=== PATIENT | male | born 1970 | race Two or more races ===

== ENCOUNTER 2016-03-12 22:51 | Emergency (ER) | payer MEDICAID, OTHER ==
[~2016-03-12] VITALS: Ht 177.8 cm; Wt 93.0 kg
[2016-03-12 23:55] VITALS: BP 118/70
[2016-03-13] MEDS ORDERED: cefTRIAXone SOD 1,000 MG VL IM ONE (01:15)
[2016-03-13] MEDS ORDERED: methylPREDNISolone SOD SUCC 125 MG/2 ML VL IM ONE (01:15)
== END 2016-03-13 01:23 | disposition home or self-care (01) ==
LOC: ER 23:02
DX: J02.9 Acute pharyngitis, unspecified (principal); E11.9 Type 2 diabetes mellitus without complications; I10 Essential (primary) hypertension
CPT/HCPCS: 82962; 96372; 99284; J0696; J2930

== ENCOUNTER 2023-10-20 15:37 | Emergency (ER) | payer BC, MEDICAID ==
[~2023-10-20] VITALS: Ht 177.8 cm; Wt 102.8 kg
[2023-10-20 16:56] LABS: Urine Bacteria None Seen /hpf (None Seen)
[2023-10-20 17:18] LABS: Urine Blood 1+ /uL (Negative); Urine Clarity Clear (Clear); Urine Color Light-Yellow (Yellow); Urine Protein, UAD 2+ (Negative); Urine Specific Gravity 1.019 (1.001-1.035); Urine Urobilinogen Normal (Negative); Urine WBC <1 /hpf (0 - 3)
[2023-10-20 18:58] LABS: Basophils # (auto) 0.1 10 ^3/uL (0-0.2); Basophils % (auto) 0.9 % (0.0-2.0); Eosinophils # (auto) 0.2 10 ^3/uL (0-0.8); Eosinophils % (auto) 3.2 % (0.0-7.0); Lymphocytes % (auto) 29.9 % (10.0-50.0); Mean Corpuscular Hemoglobin 30.7 pg (28.0-32.0); Mean Corpuscular Hgb Conc. 36.2 g/dL (32.0-36.0); Mean Corpuscular Volume 84.8 fL (80.0-100.0); Monocytes # (auto) 0.5 10 ^3/uL (0-1.3); Monocytes % (auto) 7.7 % (0.0-12.0); Neutrophils # (auto) 3.9 10 ^3/uL (1.6-8.6); Neutrophils % (auto) 58.3 % (37.0-80.0); Nucleated Red Blood Cells % 0.2 %; Platelet Count (auto) 230 10^3/uL (140-450); Red Blood Cells 4.25 10^6/uL (4.5-5.90); White Blood Cell 6.7 10^3/uL (4.4-10.8)
[2023-10-20 19:19] LABS: Alanine Aminotransferase 47 U/L (7-40); Alkaline Phosphatase 82 U/L (46-116); Anion Gap 6 (5-15); BUN/Creatinine Ratio 16.5 (10.0-20.0); Bilirubin, Total 0.2 mg/dL (0.2-1.0); Blood Urea Nitrogen 30 mg/dL (9-23); Calcium 9.3 mg/dL (8.7-10.4); Carbon Dioxide 23 mmol/L (20-30); Chloride 106 mmol/L (98-107); Glucose 288 mg/dL (74-106); Potassium 4.3 mmol/L (3.5-5.1); Sodium 135 mmol/L (136-145); Total Protein 6.3 g/dL (5.7-8.2)
[2023-10-20 19:28] LABS: Aspartate Aminotransferase 29 U/L (13-40)
[2023-10-20 19:38] LABS: Erythrocyte Sedimentation Rate 32 mm/hr (0-20)
[2023-10-20 21:43] LABS: Alanine Aminotransferase 48 U/L (7-40); Albumin 3.9 g/dL (3.2-4.8); Alkaline Phosphatase 71 U/L (46-116); Anion Gap 6 (5-15); Aspartate Aminotransferase 36 U/L (13-40); BUN/Creatinine Ratio 12.8 (10.0-20.0); Bilirubin, Total 0.2 mg/dL (0.2-1.0); Blood Urea Nitrogen 23 mg/dL (9-23); Calcium 9.3 mg/dL (8.7-10.4); Carbon Dioxide 19 mmol/L (20-30); Chloride 109 mmol/L (98-107); Glucose 203 mg/dL (74-106); Potassium 4.3 mmol/L (3.5-5.1); Sodium 134 mmol/L (136-145); Total Protein 6.3 g/dL (5.7-8.2)
[2023-10-20 21:44] VITALS: BP 121/74; PULSE 72; RESP 18; O2SAT 99
[2023-10-20] MEDS: SODIUM CHLORIDE 0.9% 1,000 ML IV ONE ×2 (21:44→22:18)
[2023-10-21] MEDS ORDERED: IOHEXOL 350 MG/ML 100ML IJ ONE (05:12)
== END 2023-10-21 00:11 | disposition home or self-care (01) ==
LOC: ER 15:37
DX: I83.91 Asymptomatic varicose veins of right lower extremity (principal); M71.21 Synovial cyst of popliteal space [Baker], right knee; M79.661 Pain in right lower leg; R06.02 Shortness of breath; R78.9 Finding of unspecified substance, not normally found in blood; N28.9 Disorder of kidney and ureter, unspecified; I10 Essential (primary) hypertension; E11.9 Type 2 diabetes mellitus without complications
CPT/HCPCS: 36415; 71275; 80053; 81001; 82962; 83880; 84484; 85025; 85379; 85652; 86141; 93005; 93970; 96360; 96361; 99285; J7030; Q9967